=== PATIENT | male | born 2000 | race Caucasian/White ===

== ENCOUNTER 2023-02-06 05:44 | Emergency (ER) | payer OTHER, BC, SELFPAY ==
--- NOTE | ~2023-02-06 | XR_ITS ---
EXAMINATION: XR tibia fibula LT 2V INDICATION: Left leg pain TECHNIQUE: Two views of the left tibia and fibula are obtained on four radiographs. COMPARISON: None available FINDINGS: No fracture, dislocation, or subluxation. The bones, soft tissues, and joint spaces are nor mal. IMPRESSION: 1. No acute osseous abnormality. Reviewed, dictated and finalized at location A.
[2023-02-06 05:44] VITALS: BP 125/85; PULSE 72; RESP 16; TEMP 36.5; O2SAT 99
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
[2023-02-06] MEDS: ACETAMINOPHEN 500 MG TABLET 1000 MG PO (07:12)
[2023-02-06 07:37] VITALS: BP 125/90; PULSE 70; RESP 18; O2SAT 99
== END 2023-02-06 07:38 | disposition home or self-care (01) ==
PROVIDERS: Emergency Provider Emergency Medicine; PCP Family Medicine
DX: S80.12XA Contusion of left lower leg, initial encounter (principal); V44.5XXA Car driver injured in collision with heavy transport vehicle or bus in traffic accident, initial encounter; K21.9 Gastro-esophageal reflux disease without esophagitis
CPT/HCPCS: 73590; 99283; A9270

== ENCOUNTER 2024-06-19 11:18 | Outpatient (CLI) | payer BC, SELFPAY ==
--- NOTE | ~2024-06-19 | US_ITS ---
EXAM: Focused ultrasound examination of the soft tissues of the posterior ribs/thoracic spine area. HISTORY: R22.2 - Localized swelling, mass and lump, trunk TECHNIQUE: Sonographic evaluation of the soft tissues overlying the posterior ribs/thoracic spine are a were performed assessing grayscale appearance and color Doppler flow. COMPARISON: None. FINDINGS: Sonographic evaluation of the soft tissues overlying the posterior ribs/thoracic spine area, to the r ight of midline demonstrate a well-circumscribed, avascular, oval-shaped focus of mixed echogenicity measuring 4 x 0.35 x 3.6 cm, for which asymmetric musculature is suspected. Sonographic evaluation of the remainder of the soft tissues demonstrates benign fibrofatty and fibrom uscular elements without a cystic or solid lesion of concern. IMPRESSION: Findings along the right flank which appear to demonstrate asymmetric musculature. No suspicious feat ures are present. Contrast-enhanced MRI may be performed for confirmation, if the patient is clinically able. Query a history of prior trauma. Reviewed, dictated and finalized at location A. LITHOGRAPHER IMPRESSION: Findings along the right flank which appear to demonstrate asymmetric musculatu re. No suspicious features are present. Contrast-enhanced MRI may be performed for confirmation, if the patient is clin ically able. Query a history of prior trauma.
== END 2024-06-19 11:19 | disposition home or self-care (01) ==
LOC: MICIMG 11:19
PROVIDERS: PCP Nurse Practitioner Family; Visit Provider Nurse Practitioner Family
DX: R22.2 Localized swelling, mass and lump, trunk (principal)
CPT/HCPCS: 76705

== ENCOUNTER 2025-07-17 09:38 | Emergency (ER) | payer BC, SELFPAY ==
--- NOTE | ~2025-07-17 | XR_ITS ---
EXAMINATION: XR ankle LT min 3V DATE: 07/17/2025 09:57 INDICATION: Injury TECHNIQUE: Left ankle x-rays were obtained. COMPARISON: None. FINDINGS: Talocalcaneal coalition seen on the frontal view. No fracture lucency subluxation or dislocation. No acute or aggressive bony or soft tissue process. No large joint effusion or radiopaque foreign bodies. IMPRESSION: 1. No fracture lucency. 2. Incidental note of talocalcaneal fibrous coalition. Reviewed, dictated and finalized at location A. MACHINE SERVICE REPAIRER
--- NOTE | ~2025-07-17 | XR_ITS ---
EXAMINATION: XR foot LT min 3V DATE: 07/17/2025 09:57 INDICATION: Injury TECHNIQUE: Left foot x-rays were obtained. COMPARISON: None. FINDINGS: No displaced fracture lucency or dislocation. Claw toe deformities noted. Incidentally noted talocalcaneal fibrous appearing coalition. No radiopaque foreign bodies or severe soft tissue swelling. IMPRESSION: 1. No fracture lucency identified. Chronic findings as above including fibrous appearing talocalcaneal coalition. Reviewed, dictated and finalized at location A. PATIONAL HEALTH SPECIALIST
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
[2025-07-17 09:47] VITALS: BP 124/75; PULSE 105; RESP 18; TEMP 36.7; O2SAT 99
== END 2025-07-17 10:12 | disposition home or self-care (01) ==
PROVIDERS: Emergency Provider Registered Nurse; PCP Family Medicine
DX: M25.572 Pain in left ankle and joints of left foot (principal); Q66.89 Other specified congenital deformities of feet; K21.9 Gastro-esophageal reflux disease without esophagitis
CPT/HCPCS: 73610; 73630; 99213; G0463